=== PATIENT | female | born 1975 | race Caucasian/White ===

== ENCOUNTER 2020-05-17 17:55 | Emergency (ER) | payer OTHER, SELFPAY ==
[2020-05-17 17:56] VITALS: BP 131/86; PULSE 106; PULSE 107; RESP 18; TEMP 36.6; O2SAT 99; BMI 36.6
--- NOTE | 2020-05-17 18:01 | RAD_ITS ---
STUDY: X-RAY - LEFT ANKLE REASON FOR EXAM: Female, 45 years old. twisting injury, lateral pain and swelling TECHNIQUE: 3 view(s) of the ankle. COMPARISON: None. FINDINGS: Normal visualized distal tibia and fibula. Normal medial and lateral malleoli. Normal tibiotalar articulation and ankle mortise. Normal visualized talus and calcaneus. The visualized subtalar, talonavicular, calcaneocuboid and tarsal articulations are normal. There is no demonstrated fracture. The soft tissue structures are unremarkable. RAD/Ankle min 3 Views IMPRESSION: Normal x-ray examination of the ankle. Electronically Signed: Derek Mckinley MD at 19:16 EST , Service support ,
--- NOTE | 2020-05-17 18:58 | ED.DCSUM_ITS ---
- ER Visit Summary Date of Service: 05/17/20 Chief Complaint: Ankle and proximal foot pain after injury History of Present Illness: The patient is a 45 F no past medical or surgical history. Patient states that her foot was asleep when she stood up to walk she landed awkwardly on her left proximal foot and ankle and twisted it and sat down. She denies any other injuries. This occurred about 2 hours prior to arrival. Physical Examination: Well-appearing middle-aged female no acute distress vital signs stable afebrile. HEENT exam normal. Neck nontender. Lungs clear to auscultation bilaterally. Heart regular rhythm no murmur. Chest wall nontender. Abdomen soft nontender. Extremities moves all 4. Neurovascular intact. No deformity. Left hip left knee left ankle nontender normal range of motion. Achilles tendon intact. Normal dorsi plantarflexion. Tenderness to t he proximal foot just below the left lateral malleolus. No deformity. Minimal swelling. DP pulse intact. Otherwise foot nontender. Able to wiggle her toes. Normal Sensation. Neurologic exam normal. Test Results: Left foot x-ray 3 views interpreted by myself shows no acute abnormality. No fracture. No dislocation. I did go over the film with the patient. Emergency Department Course and Treatment: Exam, history and x-ray are consistent with a left foot sprain and contusion. Treatment Plan: Ice and elevate. Motrin and Tylenol for pain and swelling. Increase activity as tolerated. Follow-up and have reevaluated if not improving. Disposition: Discharge Impression: Acute left foot sprain and contusion This note was generated with [employer] dictation software. It may contain incorrect words, spelling, and punctuation that were not noted in review of the chart prior to signing ED Disposition - Plan for ED Patient: Referrals: Telly Robins MD [Primary Care Provider] -
--- NOTE | 2020-05-17 19:00 | ED.DEP ---
ED Disposition - Plan for ED Patient: Disposition: Home or Assisted Living Instructions: ED Foot Contusion, ED Foot Sprain Referrals: Telly Robins MD [Primary Care Provider] - 1 Week if not improving Additional Instructions: And elevate to decrease pain and swelling. Motrin for pain and swelling and Tylenol for pain. Increase activity as tolerated. Follow-up if not improving in 1 week to have reevaluated and possibly even re - x-rayed.
[2020-05-17 19:15] VITALS: RESP 17
== END 2020-05-17 19:16 | disposition home or self-care (01) ==
LOC: ED 19:13
PROVIDERS: Emergency Provider Emergency Medicine; PCP Internal Medicine
DX: S93.602A Unspecified sprain of left foot, initial encounter (principal); S90.02XA Contusion of left ankle, initial encounter; W18.39XA Other fall on same level, initial encounter
CPT/HCPCS: 73610; 99282

== ENCOUNTER → 2021-01-25 09:18 | Outpatient (CLI) | payer OTHER, SELFPAY ==
--- NOTE | 2021-01-25 09:20 | BI_ITS ---
MAMMOGRAPHY - BILATERAL DIAGNOSTIC REASON FOR EXAM: Female, 46 years old. Patient felt a lump one week ago. The lump is not palpable at this time. PERTINENT HISTORY: Non-contributory. History of prior right ultrasound-guided breast biopsy. TECHNIQUE: Digital bilateral breast francisco (3D mammographic acquisition) in the CC and MLO projections. 2-D mediolateral oblique (MLO) and craniocaudad (CC) views of both breasts were obtained. CAD: Full Field Digital Mammography with Computer Added Detection was performed. COMPARISON: Comparison is made with prior study dated 11/29/2016. FINDINGS: Breast Composition: There are scattered areas of fibroglandular density. There are no dominant masses or suspicious calcifications. Stable 1.5 cm x 1.6 cm nodular density in the deep upper medial aspect of the right breast. A tissue clip marker is seen within. No other significant abnormalities are identified. There has been no significant change since the prior study. BI/DIAG MAMM W/CAD, BILAT IMPRESSION: Stable bilateral diagnostic mammogram. With the patient''s history of a palpable lump in the anterior upper lateral aspect of the right breast, correlation with ultrasound is recommended. ASSESSMENT CATEGORY: BIRADS Category 0: Incomplete. Need additional imaging evaluation. A letter regarding these results will be sent to the patient by the facility within 30 days. Approximately 10% of breast cancers are not detected by mammography. A normal mammogram should not delay biopsy of a clinically suspicious abnormality. Electronically Signed: Andrade Syed MD at 12:52 EST , Service support ,
--- NOTE | 2021-01-25 09:20 | US_ITS ---
STUDY: ULTRASOUND BREAST - RIGHT REASON FOR EXAM: Female, 46 years old. Palpable lump in the right breast. TECHNIQUE: Axial and longitudinal images of the RIGHT breast were performed with a high resolution ultrasound transducer. # OF IMAGES: 17 COMPARISON: Comparison is made with prior ultrasound of the right breast dated 03/06/2017. FINDINGS: RIGHT Breast: The upper slightly medial aspect of the right breast was examined by ultrasound. No sonographic abnormality is seen. Stable appearance of the 1 cm x 1.1 cm x 0.8 cm hypoechoic nodular density. A tissue marker seen within it. US/Breast Limited Unilateral IMPRESSION: No acute abnormality is seen. ASSESSMENT CATEGORY: BIRADS Category 2: Benign. A letter regarding these results will be sent to the patient by the facility within 30 days. Electronically Signed: Andrade Syed MD at 12:57 EST , Service support ,
== END ==
PROVIDERS: PCP Internal Medicine; Referring Provider Student in an Organized Health Care Education/Training Program; Visit Provider Student in an Organized Health Care Education/Training Program
DX: N63.11 Unspecified lump in the right breast, upper outer quadrant (principal)
CPT/HCPCS: 76642; 77062; 77066; G0279